=== PATIENT | male | born 1975 | race Caucasian/White ===

== ENCOUNTER 2023-10-25 16:39 | Outpatient (CLI) | payer OTHER, SELFPAY ==
[2023-10-25 22:52] LABS: H pylori Ag Stool* Negative (Negative)
== END 2023-10-25 16:40 | disposition home or self-care (01) ==
PROVIDERS: PCP Family Medicine; Visit Provider Family Medicine
DX: R10.13 Epigastric pain (principal)
CPT/HCPCS: 87338